=== PATIENT | female | born 1975 | race Hispanic/Latino ===

== ENCOUNTER 2018-09-23 16:18 | Emergency (ER) | payer BC, OTHER ==
[~2018-09-23] VITALS: Ht 157.5 cm; Wt 70.3 kg
[~2018-09-23 16:18] MED LIST: Z.0.FOLIC ACID1 MG; Z.0.LORAZEPAM2 MG; Z.0.SYNTHROID175 MCG
== END 2018-09-23 20:54 | disposition left against medical advice (07) ==
LOC: ER 16:18
DX: R51 Headache (principal)

== ENCOUNTER 2021-12-21 15:04 | Emergency (ER) | payer BC, OTHER ==
[~2021-12-21] VITALS: Ht 157.5 cm; Wt 70.3 kg
[2021-12-21] MEDS ORDERED: KETOROLAC TROMETHAMINE 30 MG/ML VIAL IV STA (15:16)
[2021-12-21] MEDS ORDERED: SODIUM CHLORIDE 0.9% 1000ML 1,000 ML IV STA (15:16)
[2021-12-21] MEDS ORDERED: METOCLOPRAMIDE HCL 10 MG/2ML VIAL IV ONE (15:30)
[2021-12-21] MEDS ORDERED: DIPHENHYDRAMINE HCL INJ 50 MG/ML VIAL IV ONE (15:30)
== END 2021-12-21 16:31 | disposition home or self-care (01) ==
LOC: ER 15:06
DX: G43.909 Migraine, unspecified, not intractable, without status migrainosus (principal); E03.9 Hypothyroidism, unspecified; F41.9 Anxiety disorder, unspecified; Z79.899 Other long term (current) drug therapy
CPT/HCPCS: 36415; 70450; 84702; 99284; J7030